=== PATIENT | male | born 1990 | race Caucasian/White ===

== ENCOUNTER 2022-03-29 09:06 | Emergency (ER) | payer OTHER ==
[2022-03-29] MEDS ORDERED: TRIAMCINOLONE 080 GM TOP (09:41)
== END 2022-03-29 10:00 | disposition home or self-care (01) ==
LOC: FER 09:06
DX: L23.7 Allergic contact dermatitis due to plants, except food (principal); F17.290 Nicotine dependence, other tobacco product, uncomplicated; Z91.040 Latex allergy status
CPT/HCPCS: J1100